=== PATIENT | male | born 1960 | race Caucasian/White ===

== ENCOUNTER 2022-04-16 23:14 | Emergency (ER) | payer SELFPAY ==
[2022-04-16] MEDS ORDERED: Aspirin 81 MG Tab.Chew PO ONE (23:41)
[2022-04-17 00:04] LABS: BLOOD UREA NITROGEN,BUN 20 mg/dL (7.0-18.0); CHLORIDE,CL 105 mmol/L (98-107); GLUCOSE RANDOM 77 mg/dL (74-106); POTASSIUM,K 3.9 mmol/L (3.5-5.1); SODIUM,NA 142 mmol/L (136-148)
[2022-04-17 00:05] LABS: ESTIMATED GFR 96 mL/min (>60)
[2022-04-17] MEDS ORDERED: Magnesium Oxide 400 MG Tab PO ONE (00:11)
[2022-04-17] MEDS ORDERED: Clopidogrel 75 MG Tab PO ONE (00:11)
[2022-04-17] MEDS ORDERED: atorvaSTATin 40 MG Tab PO ONE (00:11)
== END 2022-04-17 00:20 | disposition left against medical advice (07) ==
LOC: MW.ED 23:14
DX: G45.9 Transient cerebral ischemic attack, unspecified (principal); F10.129 Alcohol abuse with intoxication, unspecified; E83.42 Hypomagnesemia; Z20.822 Contact with and (suspected) exposure to COVID-19; Y90.7 Blood alcohol level of 200-239 mg/100 ml
CPT/HCPCS: 36415; 70450; 70496; 70498; 80053; 80307; 81001; 83735; 84443; 84484; 85025; 87635; 93005; 99285; A9270; 93010; U0002

== ENCOUNTER 2022-05-23 13:50 | Emergency (ER) | payer BC ==
[2022-05-23] MEDS ORDERED: Sulfamethoxazole/Trimethoprim 800-160 MG Tab PO ONE (14:32)
== END 2022-05-23 15:01 | disposition home or self-care (01) ==
LOC: MW.ED 13:50
DX: L03.113 Cellulitis of right upper limb (principal); Z79.899 Other long term (current) drug therapy
CPT/HCPCS: 36415; 85025; 99283; A9270